=== PATIENT | male | born 1995 | race Caucasian/White ===

== ENCOUNTER 2021-08-29 21:41 | Emergency (ER) | payer MEDICAID, SELFPAY ==
[2021-08-29 21:42] VITALS: BP 136/77; PULSE 83; RESP 17; TEMP 36.9; O2SAT 99; BMI 25.1
[2021-08-29 21:54] VITALS: BMI 25.1
[2021-08-29 22:05] LABS: Strep Scrn Group A (Rapid) Negative (Negative)
--- NOTE | 2021-08-29 22:07 | HMH.EDGENADL ---
ED Disposition Clinical Impression: Pharyngitis Qualifiers: Pharyngitis/tonsillitis etiology: unspecified etiology Qualified Code(s): J02.9 - Acute pharyngitis, unspecified Disposition: Home, Self-Care Condition on Discharge: Good Instructions: DI for Pharyngitis/Tonsillopharyngitis -- Adult Additional Instructions: fluids and gargle and change tooth brush - use meds and see pcp for follow up Prescriptions: predniSONE [Prednisone 20mg Tab] 20 mg PO BID #10 tab Transmission Status: Pending to [facility]/pharmacy #[id number] Azithromycin [Zithromax 250mg tab] 250 mg PO DIRECTED #6 tab Transmission Status: Pending to [facility]/pharmacy #[id number] Referrals: Provider,Referral, MD [Primary Care Provider] - - Critical Care Critical Care Time: No Attestation: On 08/29/21, the high probability of a clinically significant, sudden or life threatening deterioration of the following system(s) required my full and direct attention, intervention and personal management. The time I documented below is in addition to time spent performing reported procedures but includes the following listed in this critical care notation. Medical Decision Making - Medical Records Medical records reviewed: Yes: I reviewed the patient's medical records. - Demarcus Inquiry Pt receiving controlled substance: No Vital Signs: 08/29/21 21:42 Temperature 98.5 F Temperature Source Oral Pulse Rate [Right] 83 Respiratory Rate 17 Blood Pressure [Right Arm] 136/77 Blood Pressure Mean [Right Arm] 96 Blood Pressure Source [Right Arm] Automatic Cuff 02 Sat by Pulse Oximetry 99 Oxygen Delivery Method Room Air - Lab Data Lab results reviewed: Yes: I reviewed the patient's lab results. Lab Results 08/29/21 21:50: Group A Strep Rapid Negative Orders (Tests/Meds): ED MEDICATIONS Discontinued Medications Generic Name Dose Route Start Last Admin Trade Name Freq PRN Reason Stop Dose Admin Acetaminophen 650 mg 08/29/21 22:02 Acetaminophen 325mg Tab PO 08/29/21 22:03 ONCE ONE Ondansetron HCl 4 mg 08/29/21 22:02 Ondansetron 4mg Odt SL 08/29/21 22:03 ONCE ONE ORDERS Category Date Time Status Strep Screen Confirmation Stat Micro 08/29/21 21:50 Received Medical Decision Narrative: sore throat with neg strep but will treat with abx at this time - gargle General Adult HPI - General Chief complaint: PAIN Stated complaint: sore throat, vomiting Time Seen by Provider: 08/29/21 22:07 Mode of Arrival: Family Vehicle Source of Information: Patient, Medical Record Limitations: No Limitations Description of Symptoms (Recalled from ER Triage Doc. by RN): Pt c/o sore throat for 3 days and today began to vomit. Redness and swelling noted to tonsils back of throat. Tonsil stone present to left side. Denies any abd pain. Denies fever, chills. - History of Present Illness HPI narrative: sore throat over the last few days Onset (ago): day(s) Location: mouth Severity: moderate Associated symptoms: denies other symptoms Treatments prior to arrival: none - Related Data Previous Rx's Medication Instructions Recorded Azithromycin [Zithromax 250mg 250 mg PO DIRECTED #6 tab 08/29/21 tab] predniSONE [Prednisone 20mg 20 mg PO BID #10 tab 08/29/21 Tab] Allergies Allergy/AdvReac Type Severity Reaction Status Date / Time cephalexin [From Keflex] Allergy Intermediate Verified 01/11/19 09:18 [facility] History - Hepatitis A Screen Attestation statement:: This patient has been screened for Hepatitis A risk factors. I have reviewed the patient's past medical history: Yes ROS Obtained: Yes All systems reviewed & no additional complaints - Constitutional Constitutional: Denies fever(s) - Eyes Eyes: Denies change in vision - ENT Ears, Nose, Mouth, and Throat: Reports as per HPI, Denies nasal congestion, Reports sore throat - Cardiovascular Cardiovascular: Denies chest pain, Denies dys
[2021-08-29 22:29] VITALS: BP 128/79; PULSE 82; RESP 16; TEMP 36.9; O2SAT 99
== END 2021-08-29 22:41 | disposition home or self-care (01) ==
PROVIDERS: Emergency Provider Emergency Medicine
DX: J02.9 Acute pharyngitis, unspecified (principal); R11.10 Vomiting, unspecified; Z88.8 Allergy status to other drugs, medicaments and biological substances
CPT/HCPCS: 87430; 99283

== ENCOUNTER 2022-09-08 19:47 | Emergency (ER) | payer BC, MEDICAID, SELFPAY ==
[2022-09-08 19:48] VITALS: BP 130/85; PULSE 78; RESP 20; TEMP 36.8; O2SAT 98; BMI 23.1
[2022-09-08 20:24] LABS: Microscopic, Urine URINE MICROSCOPIC (MICROSCOPIC)
[2022-09-08 20:32] LABS: Appearance,Urine CLEAR (Clear); Blood, Urine Negative (Negative); Color,Urine YELLOW (Yellow); Glucose,Urine (UA) Negative (Negative); Ketones,Urine TRACE (Negative); Leukocyte Esterase,Urine Negative (Negative); Nitrate,Urine Negative (Negative); PH,Urine 5.5 (5.0-8.5); Protein,Urine TRACE (Negative); Specific Gravity, Urine >= 1.030 (1.005-1.030)
[2022-09-08 20:34] LABS: Basophils # 0.1 K/mm3 (0-0.2); Basophils % 0.6 % (0.1-2.0); Eosinophils # 0.1 K/mm3 (0.0-0.4); Eosinophils % 0.9 % (0.1-12.0); Hematocrit 48.9 % (42.0-52.0); Hemoglobin 15.8 g/dL (14.1-18.0); Lymphocytes # 3.1 K/mm3 (0.7-4.5); Lymphocytes % 21.7 % (10-50); Mean Corpuscular HGB Conc 32.3 g/dL (31.8-35.4); Mean Corpuscular Hemoglobin 29.4 pg (27.0-31.2); Mean Corpuscular Volume 91.1 fl (80-94); Mean Platelet Volume 8.1 fl (7.4-10.4); Monocytes # 0.8 K/mm3 (0.1-1.0); Monocytes % 5.5 % (1.7-9.3); Neutrophils # 10.3 K/mm3 (1.8-7.8); Neutrophils % 71.4 % (37.0-80.0); Platelet Count 255 K/mm3 (142-424); Red Blood Count 5.37 M/mm3 (4.60-6.20); Red Cell Distribution Width 13.1 % (11.5-17.5); White Blood Count 14.4 K/mm3 (4.8-10.8)
[2022-09-08 20:41] LABS: Bilirubin,Urine 2+ (Negative)
--- NOTE | 2022-09-08 20:52 | CT_ITS ---
PROCEDURE INFORMATION: Exam: CT Abdomen And Pelvis With Contrast Exam date and time: 09/08/2022 9:17 PM Age: 26 years old Clinical indication: Nausea and vomiting; Additional info: Nause vomtiing, weight loss, intermittent pain TECHNIQUE: Imaging protocol: Computed tomography of the abdomen and pelvis with contrast. Radiation optimization: All CT scans at this facility use at least one of these dose optimization techniques: automated exposure control; mA and/or kV adjustment per patient size (includes targeted exams where dose is matched to clinical indication); or iterative reconstruction. Contrast material: ISOVUE; Contrast volume: 75 ml; Contrast route: IV; REPORTING DATA: Count of CT and Cardiac NM exams in prior 12 months: This patient has received 0 known CTs and 0 known cardiac nuclear medicine studies in the 12 months prior to the current study. COMPARISON: No relevant prior studies available. FINDINGS: Liver: Normal. No mass. Gallbladder and bile ducts: Normal. No calcified stones. No ductal dilation. Pancreas: Normal. No ductal dilation. Spleen: Normal. No splenomegaly. Adrenal glands: Normal. No mass. Kidneys and ureters: Normal. No hydronephrosis. Stomach and bowel: Apparent wall thickening in the rectosigmoid colon may be secondary to incomplete filling versus mild colitis. Clinically correlate. Appendix: No evidence of appendicitis. Intraperitoneal space: Unremarkable. No free air. No significant fluid collection. Vasculature: Unremarkable. No abdominal aortic aneurysm. Lymph nodes: Unremarkable. No enlarged lymph nodes. Urinary bladder: Unremarkable as visualized. Reproductive: Unremarkable as visualized. Bones/joints: Unremarkable. No acute fracture. Soft tissues: Unremarkable. IMPRESSION: Apparent wall thickening in the rectosigmoid colon may be secondary to incomplete filling versus mild colitis. Clinically correlate.
[2022-09-08 20:54] LABS: Bacteria,Urine Trace /lpf; Mucus,Urine 1+ /lpf; Squamous Epithelial Cell,Urine Occasional #/hpf (0-5)
[2022-09-08 21:07] LABS: Alanine Aminotransferase 40 U/L (12-78); Albumin Level 5.3 g/dl (3.5-5.0); Albumin/Globulin Ratio 1.5 (1.1-1.8); Alkaline Phosphatase 85 U/L (38-126); Amylase 81 U/L (30-110); Anion Gap 16.9 mEq/L (5-15); Aspartate Amino Transferase 46 U/L (17-59); Bilirubin,Total 0.7 mg/dl (0.2-1.3); Blood Urea Nitrogen 14 mg/dl (9-20); Calcium 9.6 mg/dl (8.4-10.2); Carbon Dioxide 29 mmol/L (22.0-30.0); Chloride 99 mmol/L (98-107); Creatinine Clearance Estimated 131 mL/min (50-200); Estimated Glomerular Filt Rate 104 ml/min (>60); GFR (African American) 125 ML/MIN (>60); Globulin 3.6 g/dL (1.3-3.2); Glucose 92 mg/dl (74-100); Lipase 55 U/L (23-300); Potassium 3.9 mmoL/L (3.5-5.1); Sodium 141 mmol/L (136-145); Total Protein,Serum 8.9 g/dl (6.3-8.2)
[2022-09-08 21:12] LABS: C-Reactive Protein 1.4 mg/L (0-4)
[2022-09-08 21:23] LABS: Procalcitonin 0.033 ng/mL (0.0-2.0)
[2022-09-08 21:26] LABS: Erythrocyte Sedimentation Rate 6 mm/hr (0-15)
--- NOTE | 2022-09-08 22:44 | HMH.EDNVD ---
Discharge Plan Disposition Patient Disposition: Home, Self-Care Prescriptions Prescriptions: No Action No Known Home Medications Referrals Follow up/Referrals: Provider,Referral, MD [Primary Care Provider] - See instructions Clinical Impressions Clinical Impression: Abdominal pain Instructions Patient Instructions: DI for Abdominal Pain-Adult Discharge ED Provider: Dottie (ED)Trung Nausea/Vomiting/Diarrhea HPI General Chief complaint: Nausea/Vomiting/Diarrhea Stated complaint: weakness, abd pain, nausea, vomitting Time Seen by Provider: 09/08/22 22:45 Mode of Arrival: Ambulatory Source of Information: Patient, Spouse and Medical Record Limitations: No Limitations Description of Symptoms (Recalled from ER Triage Doc. by RN): Pt stastes he has had nausea, vomiting for several months. Had stomach issues when he was 19 but unsure what was wrong. No follow up or currrent PCP. Family has noticed weight loss and devreased appetite. History of Present Illness HPI Narrative: pt with episodes of vomiting and has waves of not feeling well worse last few weeks and has lost wt MD complaint: nausea, vomiting and abdominal pain Onset (ago): week(s) Associated Abdominal Pain: Yes Location of pain: epigastric Severity: moderate Associated symptoms: denies other symptoms Related Data Home Medications Medication Instructions Recorded Confirmed No Known Home Medications 09/08/22 09/08/22 Allergies Allergy/AdvReac Type Severity Reaction Status Date / Time cephalexin [From Keflex] Allergy Intermediate Verified 01/11/19 09:[address] [facility] Disclaimer: The information contained in this section may have been updated after the patient was seen, as this information can be updated by other users. Social History Smoking Status: Current every day smoker alcohol intake: never current occupational status: unemployed Travel in the last 8 weeks: None ROS Obtained: Yes All systems reviewed & no additional complaints except as documented Physical Exam General General appearance: alert Head Head exam: normocephalic Eye Eye exam: Present PERRL and EOMI; Absent scleral icterus ENT ENT exam: Present mucous membranes moist Neck Neck exam: Present trachea midline Respiratory Respiratory exam: Present normal lung sounds bilaterally; Absent respiratory distress Cardiovascular Cardiovascular exam: Present regular rate Abdominal Exam Abdominal exam: Present soft; Absent tenderness, guarding or rebound Abdominal tenderness: Present epigastrium and mild Extremities Exam Extremities exam: Present full ROM Neurological Exam Neurological exam: Present alert, oriented X3 and CN II-XII intact; Absent motor sensory deficit Psychiatric Psychiatric exam: Present normal affect Skin Skin exam: Absent rash Medical Decision Making Medical Records Medical records reviewed: Yes I reviewed the patient's medical records. Demarcus Inquiry Pt receiving controlled substance: No Vital Signs: 09/08/22 19:48 09/08/22 22:45 09/08/22 22:45 Temperature 98.2 F 98.1 F Temperature Source Oral Pulse Rate 87 Pulse Rate [Left] 78 Respiratory Rate 20 17 Blood Pressure 124/78 Blood Pressure [Right Arm] 130/85 Blood Pressure Mean [Right Arm] 100 Blood Pressure Source [Right Arm] Automatic Cuff Blood Pressure Position [Right Arm] Sitting 02 Sat by Pulse Oximetry 98 Oxygen Delivery Method Room Air Room Air Room Air Lab Data Lab results reviewed: Yes I reviewed the patient's lab results. Lab Results 09/08/22 20:15: WBC 14.4 H, RBC 5.37, Hgb 15.8, Hct 48.9, MCV 91.1, MCH 29.4, MCHC 32.3, RDW 13.1, Plt Count 255, MPV 8.1, Neut % (Auto) 71.4, Lymph % (Auto) 21.7, Taylor % (Auto) 5.5, Eos % (Auto) 0.9, Baso % (Auto) 0.6, Neut # (Auto) 10.3 H, Lymph # (Auto) 3.1, Taylor # (Auto) 0.8, Eos # (Auto) 0.1, Baso # (Auto) 0.1 09/08/22 20:15: Sodium 141, Potassium 3.9, Chloride 99, Carbon Dioxide 29, Anion Gap 16.
[2022-09-08 22:45] VITALS: BP 124/78; PULSE 87; RESP 17; TEMP 36.7; O2SAT 99
== END 2022-09-08 23:10 | disposition home or self-care (01) ==
PROVIDERS: Emergency Provider Emergency Medicine
DX: R10.13 Epigastric pain (principal); R53.1 Weakness; R11.2 Nausea with vomiting, unspecified; F17.200 Nicotine dependence, unspecified, uncomplicated
CPT/HCPCS: 74177; 80053; 81001; 82150; 83690; 84145; 85025; 85651; 86140; 96361; 96374; 99284; 99285; J2405; Q9967

== ENCOUNTER 2024-07-01 09:20 | Outpatient (CLI) | payer MEDICAID, SELFPAY ==
[2024-07-01 18:32] LABS: Basophils # 0.1 K/mm3 (0-0.2); Basophils % 0.6 % (0.1-2.0); Eosinophils # 0.1 Kmm3 (0.0-0.4); Eosinophils % 0.7 % (0.1-12.0); Hematocrit 47.9 % (42.0-52.0); Hemoglobin 15.9 g/dL (14.1-18.0); Lymphocytes # 1.5 K/mm3 (0.7-4.5); Lymphocytes % 13.6 % (10-50); Mean Corpuscular HGB Conc 33.2 g/dL (31.8-35.4); Mean Corpuscular Hemoglobin 29.4 pg (27.0-31.2); Mean Corpuscular Volume 88.7 fl (80-94); Mean Platelet Volume 10.6 fl (7.4-10.4); Monocytes # 1.3 K/mm3 (0.1-1.0); Monocytes % 11.8 % (1.7-9.3); Neutrophils % 73.1 % (37.0-80.0); Nucleated Red Blood Cells # 0 10^3/uL; Nucleated Red Blood Cells % 0 %; Platelet Count 220 K/mm3 (142-424); Red Cell Distribution Width 13.3 % (11.5-17.5); Red Cell Distribution Width-SD 43.2 fL; White Blood Count 10.9 K/mm3 (4.8-10.8)
[2024-07-01 19:07] LABS: Albumin Level 4.6 g/dl (3.5-5.0); Chloride 106 mmol/L (98-107); Potassium 4.1 mmoL/L (3.5-5.1); Sodium 140 mmol/L (136-145)
[2024-07-01 19:10] LABS: Alanine Aminotransferase 23 U/L (12-78); Albumin/Globulin Ratio 1.2 (1.1-1.8); Alkaline Phosphatase 99 U/L (38-126); Anion Gap 14.1 mEq/L (5-15); Aspartate Amino Transferase 29 U/L (17-59); Bilirubin,Total 0.6 mg/dl (0.2-1.3); Blood Urea Nitrogen 10 mg/dl (9-20); Carbon Dioxide 24 mmol/L (22.0-30.0); Estimated Glomerular Filt Rate 117 ml/min (>60); GFR (African American) 141 ML/MIN (>60); Globulin 3.7 g/dL (1.3-3.2); Total Protein,Serum 8.3 g/dl (6.3-8.2)
[2024-07-01 19:11] LABS: Calcium 9.3 mg/dl (8.4-10.2); Glucose 115 mg/dl (74-100)
[2024-07-01 19:23] LABS: T4 (Thyroxine) 8.3 ug/dl (5.53-11.0)
[2024-07-01 19:36] LABS: 25-OH Vitamin D, Total 26.1 ng/mL (30-100)
[2024-07-01 19:37] LABS: Thyroid Stimulating Hormone 0.84 uIU/mL (0.465-4.68)
[2024-07-01 19:55] LABS: HIV Combo NEGATIVE (Negative)
[2024-07-01 19:58] LABS: Hepatitis C Ab Qual. W/ RFX NEGATIVE (Negative)
== END 2024-07-01 23:59 | disposition home or self-care (01) ==
LOC: LAB.DROPOF 07-04 09:21
PROVIDERS: PCP Nurse Practitioner; Visit Provider Nurse Practitioner Family
DX: J02.0 Streptococcal pharyngitis (principal); F17.210 Nicotine dependence, cigarettes, uncomplicated; Z11.59 Encounter for screening for other viral diseases; Z91.89 Other specified personal risk factors, not elsewhere classified
CPT/HCPCS: 80053; 82306; 84436; 84443; 85025; 86803; 87389